=== PATIENT | male | born 1950 | race Caucasian/White ===

== ENCOUNTER 2017-04-24 09:24 | Emergency (ER) | payer MEDICARE, OTHER ==
[2017-04-24] MEDS ORDERED: DIPH/PERTUSS(ACELL)/TETANUS VAC/PF 0.5 ML SYR (>=10YO) IM ONE (09:58)
--- NOTE | 2017-04-24 10:00 | ER Document Report ---
ED Medical Screen (RME) - General Chief Complaint: Laceration Stated Complaint: INJURY/HEAD PAIN Time Seen by Provider: 04/24/17 09:43 Mode of Arrival: Ambulatory Information source: Patient TRAVEL OUTSIDE OF THE [place] IN LAST 30 DAYS: No - HPI Patient complains to provider of: Head injury Onset: This morning Onset/Duration: Sudden Quality of pain: Achy Severity: Mild Pain Level: 2 Exacerbated by: Denies Relieved by: Denies Similar symptoms previously: No Notes: 04/24/17 09:59 Patient is a 67-year-old male who presents to the emergency room following a head injury, states he was fishing this morning and slipped and fell landing backwards on the concrete hitting the back of his head, he has a laceration in this area and localized pain and tenderness, however denies a headache, no loss of consciousness, no vision changes, no nausea or vomiting - Related Data Allergies/Adverse Reactions: No Known Allergies Allergy (Unverified 04/24/17 09:28) Past Medical History Renal/ Medical History: Denies: Hx Peritoneal Dialysis Physical Exam - Vital signs Vitals: Temp Pulse Resp BP Pulse Ox 97.8 F 67 20 139/70 H 94 04/24/17 09:28 04/24/17 09:28 04/24/17 09:28 04/24/17 09:28 04/24/17 09:28 Course - Vital Signs Vital signs: Temp Pulse Resp BP Pulse Ox 97.8 F 67 20 139/70 H 94 04/24/17 09:28 04/24/17 09:28 04/24/17 09:28 04/24/17 09:28 04/24/17 09:28
--- NOTE | 2017-04-24 10:35 | RADIOLOGY REPORT (SQ) ---
EXAM DESCRIPTION: CT HEAD WITHOUT COMPLETED DATE/TIME: 04/24/2017 10:13 am REASON FOR STUDY: injury COMPARISON: None. TECHNIQUE: Axial images acquired through the brain without intravenous contrast. Images reviewed wi th bone, brain and subdural windows. Images stored on PACS. All CT scanners at this facility use dose modulation, iterative reconstruction, and/or weight based d osing when appropriate to reduce radiation dose to as low as reasonably achievable (ALARA). [facility]: Dose Right [facility]: CareDose [facility]: Dose Right [facility]: Teradose 4D [facility]: FortyCloud RADIATION DOSE: 64.61 mGy. LIMITATIONS: None. FINDINGS: VENTRICLES: Normal size and contour. CEREBRUM: No masses. No hemorrhage. No midline shift. Normal west/white matter differentiation. N o evidence for acute infarction. CEREBELLUM: No masses. No hemorrhage. No alteration of density. No evidence for acute infarction. EXTRAAXIAL SPACES: No fluid collections. No masses. ORBITS AND GLOBE: No intra- or extraconal masses. Normal contour of globe without masses. CALVARIUM: No fracture. PARANASAL SINUSES: No fluid or mucosal thickening. SOFT TISSUES: No mass or hematoma. OTHER: No other significant finding. IMPRESSION: NORMAL BRAIN CT WITHOUT CONTRAST. TECHNICAL DOCUMENTATION: JOB ID: [id number] Quality ID # [id number]: Final reports with documentation of one or more dose reduction techniques (e.g., Au tomated exposure control, adjustment of the mA and/or kV according to patient size, use of iterative reconstruction technique) 2010 [employer]- All Rights Reserved
--- NOTE | 2017-04-24 10:49 | ER Document Report ---
ED Wound - General Mode of Arrival: Ambulatory Information source: Patient TRAVEL OUTSIDE OF THE [place] IN LAST 30 DAYS: No - HPI Patient complains to provider of: Laceration Associated Symptoms: Other - See above <DANDRE CHAN - Last Filed: 04/24/17 11:41> <BASIA CARLTON - Last Filed: 04/24/17 11:55> - General Chief Complaint: Laceration Stated Complaint: INJURY/HEAD PAIN Time Seen by Provider: 04/24/17 09:43 Notes: Patient is a 67 year old male who presents to the emergency department complaining of a wound on the back of his head. Patient reports he was fishing this morning when he slipped on a slimy spot, fell backwards and hit his head on the concrete. Patient states that he is takes one baby Asa a day but is not on any other blood thinners. Patient green snot remember his last tetanus shot. Patient denies any new neck pain and states he has chronic neck pain. Patient denies loss of consciousness. (DANDRE CHAN) - Related Data Allergies/Adverse Reactions: No Known Allergies Allergy (Verified 04/24/17 10:23) Past Medical History - General Information source: Patient - Social History Smoking Status: Former Smoker Chew tobacco use (# tins/day): No Frequency of alcohol use: Daily Drug Abuse: None Family History: Reviewed & Not Pertinent Patient has suicidal ideation: No Patient has homicidal ideation: No - Past Medical History Cardiac Medical History: Reports: Hx Hypercholesterolemia, Hx Hypertension Pulmonary Medical History: Reports: Hx COPD Past Surgical History: Reports: Hx Abdominal Surgery <DANDRE CHAN - Last Filed: 04/24/17 11:41> Review of Systems - Review of Systems Constitutional: No symptoms reported EENT: No symptoms reported Cardiovascular: No symptoms reported Respiratory: No symptoms reported Gastrointestinal: No symptoms reported Genitourinary: No symptoms reported Male Genitourinary: No symptoms reported Musculoskeletal: No symptoms reported Skin: See HPI - laceration, Lesions Hematologic/Lymphatic: No symptoms reported Neurological/Psychological: denies: Lost consciousness -: Yes All other systems reviewed and negative <DANDRE CHAN - Last Filed: 04/24/17 11:41> Physical Exam - Vital signs Interpretation: Normal - General General appearance: Appears well, Alert - HEENT Head: Other - 6cm laceration on posterior head with scant bleeding Neck: Normal - Respiratory Respiratory status: No respiratory distress Breath sounds: Normal Chest palpation: Normal - Back Back: Normal, Nontender - Extremities General upper extremity: Normal inspection General lower extremity: Normal inspection - Neurological Neuro grossly intact: Yes Cognition: Normal Orientation: AAOx4 [place] Coma Scale Eye Opening: Spontaneous [place] Coma Scale Verbal: Oriented [place] Coma Scale Motor: Obeys Commands [place] Coma Scale Total: 15 Speech: Normal - Psychological Associated symptoms: Normal affect, Normal mood - Skin Skin Temperature: Warm Skin Moisture: Dry Skin Color: Normal <DANDRE CHAN - Last Filed: 04/24/17 11:41> Course <DANDRE CHAN - Last Filed: 04/24/17 11:41> - Diagnostic Test Radiology reviewed: Reports reviewed <BASIA CARLTON - Last Filed: 04/24/17 11:55> - Re-evaluation Re-evalutation: 04/24/17 11:00 No acute findings on head CT. Patient takes a baby aspirin only. Laceration repair with viral. Patient denies any head pain. Feels better and would like to go home as he is hungry. He is to get his viral removed in 5-7 days and keep them clean and dry. Understands and agrees. Stable for discharge. (BASIA CARLTON) - Vital Signs Vital signs: Temp Pulse Resp BP Pulse Ox 98.0 F 77 18 124/66 92 04/24/17 11:23 04/24/17 11:23 04/24/17 11:23 04/24/17 11:23 04/24/17 11:23 Procedures - Laceration/Wound Repair Head Time completed: 11:15 Wound length (cm): 6 Wound's Depth, Shape: Linear Laceration pre-procedure: Sterile PPE donned Anesthetic type: 1% Lidocaine w/epi Wound explored: Clean Wound Repaired With: [place] Number of Sutures: 7 Complications: No <DANDRE CHAN - Last Filed: 04/24/17 11:41> Discharge <DANDRE CHAN - Last Filed: 04/24/17 11:41> <BASIA CARLTON - Last Filed: 04/24/17 11:55> - Discharge Clinical Impression: Scalp laceration Qualifiers: Encounter type: initial encounter Qualified Code(s): S01.01XA - Laceration without foreign body of scalp, initial encounter Head injury Qualifiers: Encounter type: initial encounter Qualified Code(s): S09.90XA - Unspecified injury of head, initial encounter Condition: Stable Disposition: HOME, SELF-CARE Instructions: Tetanus Immunization Given ([facility]), Head Injury Precautions ([facility]), Scalp Laceration ([facility]) Additional Instructions: Please follow-up for staple removal in 5-7 days. Scribe Attestation: 04/24/17 11:55 I personally performed the services described in the documentation, reviewed and edited the documentation which was dictated to the scribe in my presence, and it accurately records my words and actions. (BASIA CARLTON) Scribe Documentation - Scribe Written by Bobbi:: bobbi Fallon, 04/24/17, [id number] acting as scribe for :: Dwight <DANDRE CHAN - Last Filed: 04/24/17 11:41>
[2017-04-24 11:33] VITALS: BP 124/66
== END 2017-04-24 11:35 | disposition home or self-care (01) ==
LOC: ER 09:24
PROC: 0HQ0XZZ Repair Scalp Skin, External Approach (ICD-10-PCS; principal; 2017-04-24)
DX: S01.01XA Laceration without foreign body of scalp, initial encounter (principal); W01.198A Fall on same level from slipping, tripping and stumbling with subsequent striking against other object, initial encounter; Y93.89 Activity, other specified; Y92.838 Other recreation area as the place of occurrence of the external cause; Y99.8 Other external cause status; Z23 Encounter for immunization; Z79.82 Long term (current) use of aspirin; Z87.891 Personal history of nicotine dependence; E78.00 Pure hypercholesterolemia, unspecified; I10 Essential (primary) hypertension; J44.9 Chronic obstructive pulmonary disease, unspecified
CPT/HCPCS: 70450; 90471; 90715; 99283